=== PATIENT | male | born 1965 | race Two or more races ===

== ENCOUNTER 2021-07-17 09:52 | Emergency (ER) | payer SELFPAY ==
[~2021-07-17] VITALS: Ht 167.6 cm; Wt 102.1 kg
[2021-07-17 10:25] VITALS: BP 149/80
[2021-07-17 10:34] LABS: Urine Bacteria NONE SEEN /hpf (None Seen); Urine Blood Negative /uL (Negative); Urine Mucus FEW (None Seen); Urine Specific Gravity 1.033 (1.001-1.035); Urine WBC 2 /hpf (0 - 3)
== END 2021-07-17 13:49 | disposition home or self-care (01) ==
LOC: EDSEX 09:52 → ER 09:52
DX: R10.9 Unspecified abdominal pain (principal); E11.9 Type 2 diabetes mellitus without complications
CPT/HCPCS: 74176; 81001